=== PATIENT | female | born 1955 | race Caucasian/White ===

== ENCOUNTER 2023-03-27 13:50 | Outpatient (AMB) | payer OTHER, SELFPAY ==
--- NOTE | 2023-03-27 14:09 | MHC.OFFVIS ---
Intake Vital Signs 03/27/23 14:10 Height 5 ft 2.5 in Weight 185 lb BMI 33.3 BP 126/68 Blood Pressure Location Rt brachial Position Sitting Pulse 69 Pulse Source Pulse Oximeter Pulse Oximetry (%) 97 Oxygen Delivery Method Room Air Intake Visit Reasons: Dyspnea Pressroom Foreman Required: No Daycare Worker: Daycare Worker offered & declined Accompanied by: Self / Same As Patient Allergies Sulfa (Sulfonamide Antibiotics) Allergy (Verified 03/27/23 14:21) unknown codeine Adverse Reaction (Verified 03/27/23 14:21) vomiting bactrim Allergy (Mild, Uncoded 03/27/23 14:21) Rash Medication List - Last Reconciled 03/27/23 by Orin Francisco LPN adalimumab (Humira(CF)) 40 mg subcut Q2W alendronate 70 mg PO QWEEK calcipotriene-betamethasone 0.005-0.064 % (Enstilar) 1 appl topical DAILY cetirizine (Zyrtec) 10 mg PO DAILY PRN cholecalciferol (vitamin D3) 50 mcg PO DAILY clopidogrel 75 mg PO DAILY fluticasone propionate 50 mcg/actuation (Flonase Allergy Relief) 1 spray intranasal DAILY gabapentin 600 mg PO BID losartan 25 mg PO DAILY multivitamin 1 tab PO DAILY pravastatin 40 mg PO DAILY HPI Dyspnea HPI Details Danielle is a pleasant 67 year old female, former smoker with approximately 30 pack year history, quit 18 years ago with underlying psoriatic arthritis on Humira and followed by rheumatology. In the past she has been trialed on methotrexate, exbrel, otezla then plaquenil. She was referred for pulmonary evaluation for worsening dyspnea with exertion over the last few years. She denies cough, wheezing or chest tightness. She denies any history of respiratory conditions. She reports sister, smoker with lung cancer, otherwise no pertinent family history. She was previously apart of a lung cancer screening program but has not had a chest CT in years since she quit smoking 18 years ago. She denies any occupational exposures. [facility] [place] Social History (Updated 03/27/23 @ 14:27 by Orin Francisco LPN) Patient Tobacco Use Status: Former Tobacco user Cigarette Packs Per Day: 1 Years Smoked: 30 Review of Systems Const Denies chills, Denies excessive sweating, Denies fever(s), Denies headache(s) and Denies night sweats Eyes Denies dry eyes, Denies irritation and Denies itchy eyes ENT Reports Normal hearing present, Denies headache(s), Denies nasal congestion, Denies nasal discharge, Denies post nasal drip and Denies sore throat Card Denies chest pain, Denies chest pain at rest, Denies chest pain with activity, Denies claudication, Denies leg edema, Denies orthopnea and Denies paroxysmal nocturnal dyspnea Resp Denies chest congestion, Denies cough, Denies excessive phlegm production, Denies pain on inspiration, Denies pain with cough, Denies stridor and Denies wheezing Musc Denies myalgias Neuro Reports Normal hearing present and Denies headache(s) Endo Denies excessive sweating Ricardo/Lymph Denies lymphadenopathy Aller/Immun Denies itchy eyes, Denies seasonal rhinorrhea and Denies wheezing Physical Exam Vital Signs: Last Vital Signs Pulse 69 03/27/23 14:10 BP 126/68 03/27/23 14:10 Pulse Ox 97 03/27/23 14:10 Oxygen Delivery Method Room Air 03/27/23 14:10 BMI result Body Mass Index 33.3 Const General: cooperative, healthy appearing, comfortable, no acute distress, well developed and alert Nutritional Appearance: obese Orientation/consciousness: patient oriented x3 Limitations: no limitations HEENT Head: Yes normal to inspection, Yes normocephalic and Yes atraumatic Ears: hearing grossly normal bilaterally and external ears normal Eyes General: appearance normal, both eyes and all related structures Eyelids: Yes eyelids normal Sclerae: sclerae normal EOM: EOMs intact bilaterally Neck Neck: Yes normal visual inspection and Yes no lymphadenopathy Lymphatic: no lymphadenopathy noted Chest Chest palpation & inspection: normal inspection of the chest Resp Effort & Inspection: normal respiratory effort, able to speak in complete sentences, no audible wheezes, no cough, no stridor, not tachypneic, no tripod positioning and no use of accessory muscles Auscultation: diminished lung sounds Cardio Jugular venous distension: no JVD Rate: regular rate Rhythm: regular rhythm Skin Other: warm, dry General skin exam: no rashes or lesions noted Neuro General: patient oriented x3 Cranial nerves: Yes Normal hearing present Cognition (Neuro): normal cognition Gait exam (Neuro): Normal gait present Extrem General: Yes normal to inspection, Yes capillary refill normal, Yes no clubbing, cyanosis or edema and Yes no pedal edema Psych Appearance: grossly normal and well kempt Speech and movement: Normal speech and movement present and Clear speech present Affect: normal affect Attitude: cooperative Thought process: Normal thought process present Thought content: Normal thought content present Insight: Good insight present (Psych) Judgement: Good judgement present (Psych) Office Procedures 6 Minute Walk Time:: 14:55 SPO2 % at rest: 97 Pulse at rest: 73 SPO2 % during excercise: 93 Pulse during excercise: 98 SPO2 % after excercise: 97 Pulse after excercise: 82 Distance in yards walked: 1,500 Shameka Score: 5 Performance Observations:: Patient walked unassisted on level ground. Maintained O2 saturation of 93% or greater with pulse rate in the 90's for the entire 6 minutes. Patient reports no problem with breathing on level ground inside. No supplemental O2 was required. [address] - 6 Minute Walk Assessment & Plan Assessment & Plan (1) Dyspnea on exertion: Code(s): R06.09 - Other forms of dyspnea (2) Psoriatic arthritis: Code(s): L40.50 - Arthropathic psoriasis, unspecified (3) Multiple pulmonary nodules: Code(s): R91.8 - Other nonspecific abnormal finding of lung field Plan Danielle's symptoms are likely multifactorial with contribution from pulmonary, and deconditioning/obesity etiologies. Will send for PFT to thoroughly evaluate. Patient with significant smoking history, reported prior pulmonary nodules as well as medications that have potential for drug induced interstitial disease, will send for chest CT. 6MWT was performed and patient does not qualify for oxygen at this time. Will follow up in 6 weeks to review results or sooner if needed. All questions were answered and patient is in agreement of plan. Orders: Orders PFT pulmonary function test Today R06.09 - Other forms of dyspnea AMB 6 minute walk 03/27/23 R06.09 - Other forms of dyspnea CT chest wo IV con Today R91.8 - Other nonspecific abnormal finding of lung field Coding Level of Care Code New Pt Level 4 (23156) Diagnoses Dyspnea on exertion R06.09 Psoriatic arthritis L40.50 Multiple pulmonary nodules R91.8 CPT Codes Coding ([id number])
[2023-03-27 14:10] VITALS: BP 126/68; PULSE 69; O2SAT 97; BMI 33.3
[2023-03-27 15:16] VITALS: PULSE 73; O2SAT 97
== END 2023-03-27 15:10 | disposition home or self-care (01) ==
LOC: HO.HPSW 13:50
PROVIDERS: PCP Internal Medicine; Referring Provider Internal Medicine; Visit Provider Nurse Practitioner Family
DX: R06.09 Other forms of dyspnea (principal); L40.50 Arthropathic psoriasis, unspecified; R91.8 Other nonspecific abnormal finding of lung field
CPT/HCPCS: 94618; 99204

== ENCOUNTER 2023-04-09 07:45 | Outpatient (REF) | payer OTHER, SELFPAY | END 2023-04-09 07:46 | disposition home or self-care (01) | LOC: HO.RESP 07:45 | PROVIDERS: PCP Internal Medicine; Visit Provider Nurse Practitioner Family | DX: R06.09 Other forms of dyspnea (principal) | CPT/HCPCS: 94010; 94727; 94729 ==

== ENCOUNTER → 2023-04-09 08:34 | Outpatient (BNV) | payer OTHER, SELFPAY | PROVIDERS: PCP Internal Medicine; Visit Provider Hospitalist | DX: R06.09 Other forms of dyspnea (principal) | CPT/HCPCS: 94060; 94727; 94729 ==

== ENCOUNTER 2023-04-24 13:52 | Outpatient (REF) | payer OTHER, SELFPAY ==
--- NOTE | ~2023-04-24 | CT_ITS ---
EXAMINATION: CT CHEST WITHOUT CONTRAST CLINICAL INFORMATION: Pulmonary nodule COMPARISON: None available. TECHNIQUE: Multidetector volumetric CT imaging of the chest was done. Axial MIP volume rendering provided. Sagittal and coronal reformatted images were obtained. This CT examination was performed using dose optimization techniques as appropriate, variously including the following: *Automated exposure control *Adjustment of mA and/or kV according to patient size (this includes techniques or standardized protocols for targeted exams where dose is matched to indication/reason for exam; i.e. extremities or head) *Use of iterative reconstruction technique DLP: 179 mGy-cm FINDINGS: SHOP AND ALTERATION TAILOR: Unremarkable LUNGS: There is 0.3 cm nodule in the right upper lobe, seen on image 178 series 6. There is calcified 0.2 cm granuloma in the right lower lobe subpleural seen on image 252, another calcified granuloma in the right lower lobe seen on image 269, measured 0.2 cm. On the left there is calcified 0.3 cm granuloma in the left lower lobe image 342 There are mild changes of centrilobular emphysema. Linear atelectasis seen in the right lung base. Central airways are patent. MEDIASTINUM: There is mild medi lymphadenopathy with pretracheal lymph node measured 0.9 cm. There is no hilar lymphadenopathy or pericardial effusion. CORONARY ARTERY CALCIFICATION: There are mild coronary artery calcifications seen. PLEURA: There is no pleural effusion. No pleural mass or thickening. Pleural-based calcifications present most likely due to asbestos exposure. AXILLA: No lymphadenopathy. UPPER ABDOMEN: There is right adrenal gland low-attenuation nodule measured 1.3 cm there is cholelithiasis and a partially visualized gallbladder. There is small hiatal hernia OSSEOUS STRUCTURES: Unremarkable. CT/CT chest wo IV con IMPRESSION: 1. Mild changes of centrilobular emphysema and multiple calcified granulomas. 0.3 cm nodule in the right upper lobe. 2. Cholelithiasis. 3. Right adrenal gland nodule. 4. Small hiatal hernia. 5. Pleural-based calcifications most likely due to asbestos exposure. Fleischner guidelines were followed.
== END 2023-04-24 13:53 | disposition home or self-care (01) ==
LOC: HO.CT 13:52
PROVIDERS: PCP Internal Medicine; Visit Provider Nurse Practitioner Family
DX: R91.8 Other nonspecific abnormal finding of lung field (principal)
CPT/HCPCS: 71250

== ENCOUNTER 2023-05-13 13:43 | Outpatient (AMB) | payer OTHER, SELFPAY ==
[2023-05-13 13:50] VITALS: BP 130/74; PULSE 73; O2SAT 98; BMI 32.8
--- NOTE | 2023-05-13 13:50 | A.OFFVIS_ITS ---
Intake Vital Signs 3 05/13/23 13:50 Height 5 ft 2.5 in Weight 182 lb BMI 32.8 BP 130/74 Blood Pressure Location Rt brachial Position Sitting Pulse 73 Pulse Source Pulse Oximeter Pulse Oximetry (%) 98 Oxygen Delivery Method Room Air Intake Visit Reasons: 6 week follow up/ dysnea Marketing Technologist Required: No Deposition Operator: Deposition Operator offered & declined Accompanied by: Self / Same As Patient Allergies Sulfa (Sulfonamide Antibiotics) Allergy (Verified 05/13/23 13:54) unknown codeine Adverse Reaction (Verified 05/13/23 13:54) vomiting bactrim Allergy (Mild, Uncoded 05/13/23 13:54) Rash Medication List - Last Reconciled 05/13/23 by Orin Francisco LPN adalimumab (Humira(CF)) 40 mg subcut Q2W alendronate 70 mg PO QWEEK calcipotriene-betamethasone 0.005-0.064 % (Enstilar) 1 appl topical DAILY cetirizine (Zyrtec) 10 mg PO DAILY PRN cholecalciferol (vitamin D3) 50 mcg PO DAILY clopidogrel 75 mg PO DAILY fluticasone propionate 50 mcg/actuation (Flonase Allergy Relief) 1 spray intranasal DAILY gabapentin 600 mg PO BID losartan 25 mg PO DAILY multivitamin 1 tab PO DAILY pravastatin 40 mg PO DAILY HPI 6 week follow up/ dysnea 2 HPI0 Details Danielle is a pleasant 68 year old female, former smoker with approximately 30 pack year history, quit 18 years ago with underlying h/o of squamous cell carcinoma s/p right middle lobe wedge resection, cervical cancer in her 20s s/p partial hysterectomy, psoriatic arthritis on Humira and followed by rheumatology. In the past she has been trialed on methotrexate, exbrel, otezla then plaquenil. She was referred for pulmonary evaluation for worsening dyspnea with exertion over the last few years. She denies cough, wheezing or chest tightness. Today she presents to review results of PFT and chest CT. [facility] Medical History (Updated 05/14/23 @ 10:27 by Lynne Tian PA-C) History of lung cancer Multiple pulmonary nodules PVD (peripheral vascular disease) Psoriatic arthritis Hypertension Hyperlipidemia Hypothyroidism History of cervical cancer Surgical History (Updated 05/14/23 @ 10:27 by Lynne Tian PA-C) History of lung surgery History of cardiac cath History of angioplasty History of hysterectomy History of hernia repair History of tonsillectomy History of appendectomy Social History (Updated 05/13/23 @ 13:56 by Orin Francisco LPN) Patient Tobacco Use Status: Former Tobacco user Cigarette Packs Per Day: 1 Years Smoked: 30 Review of Systems Const Denies chills, Denies excessive sweating, Denies fever(s), Denies headache(s) and Denies night sweats Eyes Denies dry eyes, Denies irritation and Denies itchy eyes ENT Reports Normal hearing present, Denies headache(s), Denies nasal congestion, Denies nasal discharge, Denies post nasal drip and Denies sore throat Card Denies chest pain, Denies chest pain at rest, Denies chest pain with activity, Denies claudication, Denies leg edema, Denies orthopnea and Denies paroxysmal nocturnal dyspnea Resp Denies chest congestion, Denies cough, Denies excessive phlegm production, Denies pain on inspiration, Denies pain with cough, Denies stridor and Denies wheezing Musc Denies myalgias Neuro Reports Normal hearing present and Denies headache(s) Endo Denies excessive sweating Ricardo/Lymph Denies lymphadenopathy Aller/Immun Denies itchy eyes, Denies seasonal rhinorrhea and Denies wheezing Physical Exam Vital Signs: Last Vital Signs Pulse 73 05/13/23 13:50 BP 130/74 05/13/23 13:50 Pulse Ox 98 05/13/23 13:50 Oxygen Delivery Method Room Air 05/13/23 13:50 BMI result Body Mass Index 32.8 Const General: cooperative, healthy appearing, comfortable, no acute distress, well developed and alert Nutritional Appearance: obese Orientation/consciousness: patient oriented x3 Limitations: no limitations HEENT Head: Yes normal to inspection, Yes normocephalic and Yes atraumatic Ears: hearing grossly normal bilaterally and external ears normal Eyes General: appearance normal, both eyes and all related structures Eyelids: Yes eyelids normal Sclerae: sclerae normal EOM: EOMs intact bilaterally Neck Neck: Yes normal visual inspection and Yes no lymphadenopathy Lymphatic: no lymphadenopathy noted Chest Chest palpation & inspection: normal inspection of the chest Resp Effort & Inspection: normal respiratory effort, able to speak in complete sentences, no audible wheezes, no cough, no stridor, not tachypneic, no tripod positioning and no use of accessory muscles Auscultation: diminished lung sounds Cardio Jugular venous distension: no JVD Rate: regular rate Rhythm: regular rhythm Skin Other: warm, dry General skin exam: no rashes or lesions noted Neuro General: patient oriented x3 Cranial nerves: Yes Normal hearing present Cognition (Neuro): normal cognition Gait exam (Neuro): Normal gait present Extrem General: Yes normal to inspection, Yes capillary refill normal, Yes no clubbing, cyanosis or edema and Yes no pedal edema Psych Appearance: grossly normal and well kempt Speech and movement: Normal speech and movement present and Clear speech present Affect: normal affect Attitude: cooperative Thought process: Normal thought process present Thought content: Normal thought content present Insight: Good insight present (Psych) Judgement: Good judgement present (Psych) Results Reviewed Results Reviewed: [address] [address] [address] Scan Report Signed Patient: Danielle Liang MR#: [id number] : 1955 Acct:[id number] Age/Sex: 67 / F ADM Date: 04/24/23 Loc: HO.CT Attending Dr: Rae Adames NP Ordering Physician: Rae Adames NP Date of Service: 04/24/23 Procedure(s): CT chest wo IV con Accession Number(s): [id number] cc: Sigifredo Coley MD; Rae Adames NP~ EXAMINATION: CT CHEST WITHOUT CONTRAST CLINICAL INFORMATION: Pulmonary nodule COMPARISON: None available. TECHNIQUE: Multidetector volumetric CT imaging of the chest was done. Axial MIP volume rendering provided. Sagittal and coronal reformatted images were obtained. This CT examination was performed using dose optimization techniques as appropriate, variously including the following: *Automated exposure control *Adjustment of mA and/or kV according to patient size (this includes techniques or standardized protocols for targeted exams where dose is matched to indication/reason for exam; i.e. extremities or head) *Use of iterative reconstruction technique DLP: 179 mGy-cm FINDINGS: ESCROW MANAGER: Unremarkable LUNGS: There is 0.3 cm nodule in the right upper lobe, seen on image 178 series 6. There is calcified 0.2 cm granuloma in the right lower lobe subpleural seen on image 252, another calcified granuloma in the right lower lobe seen on image 269, measured 0.2 cm. On the left there is calcified 0.3 cm granuloma in the left lower lobe image 342 There are mild changes of centrilobular emphysema. Linear atelectasis seen in the right lung base. Central airways are patent. MEDIASTINUM: There is mild medi lymphadenopathy with pretracheal lymph node measured 0.9 cm. There is no hilar lymphadenopathy or pericardial effusion. CORONARY ARTERY CALCIFICATION: There are mild coronary artery calcifications seen. PLEURA: There is no pleural effusion. No pleural mass or thickening. Pleural-based calcifications present most likely due to asbestos exposure. AXILLA: No lymphadenopathy. UPPER ABDOMEN: There is right adrenal gland low-attenuation nodule measured 1.3 cm there is cholelithiasis and a partially visualized gallbladder. There is small hiatal hernia OSSEOUS STRUCTURES: Unremarkable. CT/CT chest wo IV con IMPRESSION: 1. Mild changes of centrilobular emphysema and multiple calcified granulomas. 0.3 cm nodule in the right upper lobe. 2. Cholelithiasis. 3. Right adrenal gland nodule. 4. Small hiatal hernia. 5. Pleural-based calcifications most likely due to asbestos exposure. Fleischner guidelines were followed. Assessment & Plan Assessment & Plan (1) Dyspnea on exertion: Code(s): R06.09 - Other forms of dyspnea (2) Psoriatic arthritis: Code(s): L40.50 - Arthropathic psoriasis, unspecified (3) Multiple pulmonary nodules: Code(s): R91.8 - Other nonspecific abnormal finding of lung field Plan Reviewed PFT which did not reveal an obstructive ventilatory defect and there was no significant response to bronchodilators.There is a mild decrease in maximum voluntary ventilation likely secondary to deconditioning. The patient also has a restrictive ventilatory defect consistent with moderate restrictive lung disease as well as a moderately decreased DLCO of 48%. We discussed importance of weight loss. Reviewed chest CT which revealed a 0.3 cm nodule in the right upper lobe, calcified granulomas bilaterally <0.3 cm. Mild emphysematous changes and linear atelectasis of right lung base as well as pleural-based calcifications most likely due to asbestos exposure. Will repeat chest CT in one year. Will trial Breo. Reviewed importance of oral hygiene and inhaler technique. Will follow up in 6 weeks to review response to inhaler or sooner if needed. All questions were answered and patient is in agreement of plan. Orders: Orders 2 CT chest wo IV con 04/25/24 R91.8 - Other nonspecific abnormal finding of lung field Medications: New 2 fluticasone furoate-vilanterol 200-25 mcg/dose (Breo Ellipta) 1 inh inhalation DAILY 60 ea 3RF Coding Level of Care Code Est Pt Level 4 (68170) Diagnoses Dyspnea on exertion R06.09 Psoriatic arthritis L40.50 Multiple pulmonary nodules R91.8
== END 2023-05-13 14:41 | disposition home or self-care (01) ==
PROVIDERS: PCP Internal Medicine; Visit Provider Nurse Practitioner Family
DX: R06.09 Other forms of dyspnea (principal); L40.50 Arthropathic psoriasis, unspecified; R91.8 Other nonspecific abnormal finding of lung field
CPT/HCPCS: 99214

== ENCOUNTER → 2023-05-13 13:43 | Outpatient (BNVA) | payer OTHER, SELFPAY | PROVIDERS: PCP Internal Medicine; Visit Provider Nurse Practitioner Family ==

== ENCOUNTER 2023-08-12 13:27 | Outpatient (AMB) | payer OTHER, SELFPAY ==
--- NOTE | 2023-08-12 13:38 | MHC.OFFVIS ---
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 Intern offered & declined Accompanied by: Self / Same As Patient Allergies Sulfa (Sulfonamide Antibiotics) Allergy (Verified 08/12/23 13:41) unknown codeine Adverse Reaction (Verified 08/12/23 13:41) vomiting bactrim Allergy (Mild, Uncoded 08/12/23 13:41) Rash Medication List - Last Reconciled 08/12/23 by Orin Francisco LPN adalimumab (Humira(CF)) 40 mg subcut Q2W alendronate 70 mg PO QWEEK calcipotriene-betamethasone 0.005-0.064 % (Enstilar) 1 appl topical DAILY cetirizine (Zyrtec) 10 mg PO DAILY PRN cholecalciferol (vitamin D3) 50 mcg PO DAILY clopidogrel 75 mg PO DAILY fluticasone furoate-vilanterol 200-25 mcg/dose (Breo Ellipta) 1 inh inhalation DAILY 90 days fluticasone propionate 50 mcg/actuation (Flonase Allergy Relief) 1 spray intranasal DAILY gabapentin 600 mg PO BID losartan 25 mg PO DAILY multivitamin 1 tab PO DAILY pravastatin 40 mg PO DAILY HPI dyspnea : 3 month f/u HPI Details Danielle is a pleasant 68 year old female, former smoker with approximately 30 pack year history, quit 18 years ago with emphysema and underlying h/o of squamous cell carcinoma s/p right middle lobe wedge resection, cervical cancer in her 20s s/p partial hysterectomy, psoriatic arthritis on Humira and followed by rheumatology. She was initially referred for worsening dyspnea with exertion over the last few years and at the last visit was started on Breo. She reports improvements in dyspnea and denies cough, wheezing or chest tightness. [facility] Medical History (Updated 08/12/23 @ 13:57 by Rae Adames NP) History of lung cancer Multiple pulmonary nodules PVD (peripheral vascular disease) Psoriatic arthritis Hypertension Hyperlipidemia Hypothyroidism History of cervical cancer Surgical History (Updated 05/14/23 @ 10:27 by Lynne Tian PA-C) History of lung surgery History of cardiac cath History of angioplasty History of hysterectomy History of hernia repair History of tonsillectomy History of appendectomy Social History (Updated 08/12/23 @ 13:42 by Orin Francisco LPN) Patient Tobacco Use Status: Former Tobacco user Cigarette Packs Per Day: 1 Years Smoked: 30 Review of Systems Const Denies chills, Denies excessive sweating, Denies fever(s), Denies headache(s) and Denies night sweats Eyes Denies dry eyes, Denies irritation and Denies itchy eyes ENT Reports Normal hearing present, Denies headache(s), Denies nasal congestion, Denies nasal discharge, Denies post nasal drip and Denies sore throat Card Denies chest pain, Denies chest pain at rest, Denies chest pain with activity, Denies claudication, Denies leg edema, Denies orthopnea and Denies paroxysmal nocturnal dyspnea Resp Denies chest congestion, Denies cough, Denies excessive phlegm production, Denies pain on inspiration, Denies pain with cough, Denies stridor and Denies wheezing Musc Denies myalgias Neuro Reports Normal hearing present and Denies headache(s) Endo Denies excessive sweating Ricardo/Lymph Denies lymphadenopathy Aller/Immun Denies itchy eyes, Denies seasonal rhinorrhea and Denies wheezing Physical Exam Vital Signs: Last Vital Signs Pulse 77 08/12/23 13:39 BP 116/64 08/12/23 13:39 Pulse Ox 98 08/12/23 13:39 Oxygen Delivery Method Room Air 08/12/23 13:39 BMI result Body Mass Index 33.5 Const General: cooperative, healthy appearing, comfortable, no acute distress, well developed and alert Nutritional Appearance: obese Orientation/consciousness: patient oriented x3 Limitations: no limitations HEENT Head: Yes normal to inspection, Yes normocephalic and Yes atraumatic Ears: hearing grossly normal bilaterally and external ears normal Eyes General: appearance normal, both eyes and all related structures Eyelids: Yes eyelids normal Sclerae: sclerae normal EOM: EOMs intact bilaterally Neck Neck: Yes normal visual inspection and Yes no lymphadenopathy Lymphatic: no lymphadenopathy noted Chest Chest palpation & inspection: normal inspection of the chest Resp Effort & Inspection: normal respiratory effort, able to speak in complete sentences, no audible wheezes, no cough, no stridor, not tachypneic, no tripod positioning and no use of accessory muscles Auscultation: clear to auscultation bilaterally Cardio Jugular venous distension: no JVD Rate: regular rate Rhythm: regular rhythm Skin Other: warm, dry General skin exam: no rashes or lesions noted Neuro General: patient oriented x3 Cranial nerves: Yes Normal hearing present Cognition (Neuro): normal cognition Gait exam (Neuro): Normal gait present Extrem General: Yes normal to inspection, Yes capillary refill normal, Yes no clubbing, cyanosis or edema and Yes no pedal edema Psych Appearance: grossly normal and well kempt Speech and movement: Normal speech and movement present and Clear speech present Affect: normal affect Attitude: cooperative Thought process: Normal thought process present Thought content: Normal thought content present Insight: Good insight present (Psych) Judgement: Good judgement present (Psych) Assessment & Plan Assessment & Plan (1) Dyspnea on exertion: Code(s): R06.09 - Other forms of dyspnea (2) Multiple pulmonary nodules: Code(s): R91.8 - Other nonspecific abnormal finding of lung field (3) Emphysema of lung: Code(s): J43.9 - Emphysema, unspecified (4) History of lung cancer: Comment: (Hx SCC s/p RML wedge resection in 2013) Code(s): Z85.118 - Personal history of other malignant neoplasm of bronchus and lung Plan Advised patient to continue current regimen of Breo and will add albuterol PRN. Discussed when to use. She is being followed for pulmonary nodules 3 mm nodule in the right upper lobe, repeat chest CT for April already entered. All questions were answered and patient is in agreement of plan. Will follow up in 4 months or sooner if needed. Medications: New albuterol sulfate 90 mcg/actuation 2 puffs inhalation Q4-6H PRN 1 ea 0RF shortness of breath or wheezing Coding Level of Care Code Est Pt Level 3 (08415) Diagnoses Dyspnea on exertion R06.09 Multiple pulmonary nodules R91.8 Emphysema of lung J43.9 History of lung cancer Z85.118
[2023-08-12 13:39] VITALS: BP 116/64; PULSE 77; O2SAT 98; BMI 33.5
== END 2023-08-12 14:24 | disposition home or self-care (01) ==
PROVIDERS: PCP Internal Medicine; Visit Provider Nurse Practitioner Family
DX: R06.09 Other forms of dyspnea (principal); R91.8 Other nonspecific abnormal finding of lung field; J43.9 Emphysema, unspecified; Z85.118 Personal history of other malignant neoplasm of bronchus and lung
CPT/HCPCS: 99213

== ENCOUNTER → 2023-08-12 13:27 | Outpatient (BNVA) | payer OTHER, SELFPAY | PROVIDERS: PCP Internal Medicine; Visit Provider Nurse Practitioner Family ==

== ENCOUNTER 2023-12-16 13:56 | Outpatient (AMB) | payer OTHER, SELFPAY ==
--- NOTE | 2023-12-16 14:19 | MHC.OFFVIS ---
Vital Signs 12/16/23 14:22 Height 5 ft 2.5 in Weight 186 lb BMI 33.5 BP 142/68 H Blood Pressure Location Rt brachial Position Sitting Pulse 66 Pulse Source Pulse Oximeter Pulse Oximetry (%) 97 Oxygen Delivery Method Room Air Intake Visit Reasons: dyspnea: 4 month f/u Allergies Sulfa (Sulfonamide Antibiotics) Allergy (Verified 12/16/23 14:24) unknown codeine Adverse Reaction (Verified 12/16/23 14:24) vomiting bactrim Allergy (Mild, Uncoded 12/16/23 14:24) Rash HPI HPI dyspnea: 4 month f/u: Details: Danielle is a pleasant 68 year old female, former smoker with approximately 30 pack year history, quit 18 years ago with emphysema and underlying h/o of squamous cell carcinoma s/p right middle lobe wedge resection, cervical cancer in her 20s s/p partial hysterectomy, psoriatic arthritis on Humira and followed by rheumatology. Today she presents for routine follow up. She reports good symptomatic control with Breo. Denies any wheezing, chest tightness, or cough. She reports dyspnea occurs with moderate exertion otherwise denies. She denies any visits to urgent care or hospitalizations since the last visit. [facility] Medical History (Updated 12/16/23 @ 20:32 by Rae Adames NP) History of lung cancer Multiple pulmonary nodules PVD (peripheral vascular disease) Psoriatic arthritis Hypertension Hyperlipidemia Hypothyroidism History of cervical cancer Surgical History (Updated 05/14/23 @ 10:27 by Lynne Tian PA-C) History of lung surgery History of cardiac cath History of angioplasty History of hysterectomy History of hernia repair History of tonsillectomy History of appendectomy Social History Patient Tobacco Use Status: Former Tobacco user Cigarette Packs Per Day: 1 Years Smoked: 30 Review of Systems Const Denies chills, Denies excessive sweating, Denies fever(s), Denies headache(s) and Denies night sweats Eyes Denies dry eyes, Denies irritation and Denies itchy eyes ENT Reports Normal hearing present, Denies headache(s), Denies nasal congestion, Denies nasal discharge, Denies post nasal drip and Denies sore throat Card Denies chest pain, Denies chest pain at rest, Denies chest pain with activity, Denies claudication, Denies leg edema, Denies dyspnea, Denies orthopnea and Denies paroxysmal nocturnal dyspnea Resp Denies chest congestion, Denies cough, Denies excessive phlegm production, Denies pain on inspiration, Denies pain with cough, Denies dyspnea, Denies stridor and Denies wheezing Musc Denies myalgias Neuro Reports Normal hearing present and Denies headache(s) Endo Denies excessive sweating Ricardo/Lymph Denies lymphadenopathy Aller/Immun Denies itchy eyes, Denies seasonal rhinorrhea and Denies wheezing Physical Exam Vital Signs: Last Vital Signs Pulse 66 12/16/23 14:22 BP 142/68 H 12/16/23 14:22 Pulse Ox 97 12/16/23 14:22 Oxygen Delivery Method Room Air 12/16/23 14:22 BMI result Body Mass Index 33.5 Const General: cooperative, healthy appearing, comfortable, no acute distress, well developed and alert Nutritional Appearance: obese Orientation/consciousness: patient oriented x3 Limitations: no limitations HEENT Head: Yes normal to inspection, Yes normocephalic and Yes atraumatic Ears: hearing grossly normal bilaterally and external ears normal Eyes General: appearance normal, both eyes and all related structures Eyelids: Yes eyelids normal Sclerae: sclerae normal EOM: EOMs intact bilaterally Neck Neck: Yes normal visual inspection and Yes no lymphadenopathy Lymphatic: no lymphadenopathy noted Chest Chest palpation & inspection: normal inspection of the chest Resp Effort & Inspection: normal respiratory effort, able to speak in complete sentences, no audible wheezes, no cough, no stridor, not tachypneic, no tripod positioning and no use of accessory muscles Auscultation: clear to auscultation bilaterally Cardio Jugular venous distension: no JVD Rate: regular rate Rhythm: regular rhythm Skin Other: warm, dry General skin exam: no rashes or lesions noted Neuro General: patient oriented x3 Cranial nerves: Yes Normal hearing present Cognition (Neuro): normal cognition Gait exam (Neuro): Normal gait present Extrem General: Yes normal to inspection, Yes capillary refill normal, Yes no clubbing, cyanosis or edema and Yes no pedal edema Psych Appearance: grossly normal and well kempt Speech and movement: Normal speech and movement present and Clear speech present Affect: normal affect Attitude: cooperative Thought process: Normal thought process present Thought content: Normal thought content present Insight: Good insight present (Psych) Judgement: Good judgement present (Psych) Assessment & Plan Assessment & Plan (1) Dyspnea on exertion: Code(s): R06.09 - Other forms of dyspnea Category: Medical (2) Multiple pulmonary nodules: Code(s): R91.8 - Other nonspecific abnormal finding of lung field Category: Medical (3) Emphysema of lung: Code(s): J43.9 - Emphysema, unspecified Category: Medical (4) History of lung cancer: Comment: (Hx SCC s/p RML wedge resection in 2013) Code(s): Z85.118 - Personal history of other malignant neoplasm of bronchus and lung Category: Medical (5) Pleural plaque: Code(s): J92.9 - Pleural plaque without asbestos Category: Medical Plan Advised patient to continue current regimen of Breo and albuterol PRN. Will send refills. She is being followed for pulmonary nodules 3 mm nodule in the right upper lobe, repeat chest CT for April, order previously entered. All questions were answered and patient is in agreement of plan. Will follow up to review CT results or sooner if needed. Medications: Refilled albuterol sulfate 90 mcg/actuation 2 puffs inhalation Q4-6H PRN 1 ea 0RF shortness of breath or wheezing fluticasone furoate-vilanterol 200-25 mcg/dose (Breo Ellipta) 1 inh inhalation DAILY 90 days 60 ea 3RF J43.9 - Emphysema, unspecified Coding Level of Care Code Est Pt Level 4 (58612) Diagnoses Dyspnea on exertion R06.09 Multiple pulmonary nodules R91.8 Emphysema of lung J43.9 History of lung cancer Z85.118 Pleural plaque J92.9
[2023-12-16 14:22] VITALS: BP 142/68; PULSE 66; O2SAT 97; BMI 33.5
== END 2023-12-16 14:50 | disposition home or self-care (01) ==
PROVIDERS: PCP Internal Medicine; Visit Provider Nurse Practitioner Family
DX: R06.09 Other forms of dyspnea (principal); R91.8 Other nonspecific abnormal finding of lung field; J43.9 Emphysema, unspecified; Z85.118 Personal history of other malignant neoplasm of bronchus and lung; J92.9 Pleural plaque without asbestos
CPT/HCPCS: 99214

== ENCOUNTER → 2023-12-16 13:56 | Outpatient (BNVA) | payer OTHER, SELFPAY | PROVIDERS: PCP Internal Medicine; Visit Provider Nurse Practitioner Family ==

== ENCOUNTER 2024-04-25 09:46 | Outpatient (REF) | payer OTHER, SELFPAY ==
--- NOTE | ~2024-04-25 | CT_ITS ---
EXAMINATION: CT CHEST WITHOUT CONTRAST CLINICAL INFORMATION: Pulmonary nodules. COMPARISON: CT chest dated April 24, 2023. TECHNIQUE: Multidetector volumetric CT imaging of the chest was done. Axial MIP volume rendering provided. Sagittal and coronal reformatted images were obtained. This CT examination was performed using dose optimization techniques as appropriate, variously including the following: *Automated exposure control *Adjustment of mA and/or kV according to patient size (this includes techniques or standardized protocols for targeted exams where dose is matched to indication/reason for exam; i.e. extremities or head) *Use of iterative reconstruction technique DLP: 149 mGy-cm FINDINGS: Submitted for interpretation on June 17, 2024. Sutures, volume loss, linear attenuation in retraction involving the anterior right lower hemithorax, probably the middle lobe. There are 2 mm noncalcified pulmonary nodules in the peripheral right upper lobe, probably anterior segment. There are 2 mm noncalcified pulmonary nodules in the periphery of the left upper lobe. There is a 2 mm noncalcified pulmonary nodule in the left lower lung lobe. There are multiple, scattered less than 2 mm calcified pulmonary nodules both lungs. There is a subtle pulmonary mosaic pattern. Mild centrilobular and paraseptal emphysematous changes involving mostly the upper lobes. Linear attenuation abnormalities in the lung bases more conspicuous in the right lung. Volume loss right lung with the elevated right hemidiaphragm. No bronchiectasis. No honeycombing. No consolidation. No pleural effusion. Calcified pleural plaques, right lower hemithorax. No pneumothorax. Respiratory airways patent. Vascular clips in the jared. No gross lymphadenopathy, mediastinum or axillary. Calcified plaques in the thoracic aorta wall its main branches and the coronary arteries. No aneurysm, thoracic aorta. No pericardial effusion. There is a 1 cm low density nodule measuring 12 Hounsfield units in the right adrenal gland. Punctate calcification in the upper pole left kidney. No hydronephrosis in either kidney. Renal cortical thinning, bilaterally. Focal hypodensity in the upper pole left kidney. Multilevel spondylosis without acute fracture or listhesis. No lytic or blastic lesions. Calcified plaques abdominal aorta wall and splenic artery. CT/CT chest wo IV con IMPRESSION: New, 2 mm noncalcified pulmonary nodules in both upper lobes and left lower lung lobe. Posttreatment changes, right middle lobe/right lower lung lobe and calcified pleura plaque. 1 cm nodule, right adrenal gland. Perhaps a lipid poor adenoma Coronary artery disease and atherosclerosis disease. Probable nonobstructing nephrolithiasis, left kidney.. Fleischner guidelines were followed. Electronically signed by: Gilberto Baugh MD 06/17/2024 08:11 AM NICHO FITCH
== END 2024-04-25 09:47 | disposition home or self-care (01) ==
LOC: HO.CT 09:46
PROVIDERS: PCP Internal Medicine; Visit Provider Nurse Practitioner Family
DX: R91.8 Other nonspecific abnormal finding of lung field (principal)
CPT/HCPCS: 71250

== ENCOUNTER → 2024-04-25 09:48 | Outpatient (BNV) | payer OTHER, SELFPAY | PROVIDERS: PCP Internal Medicine; Visit Provider Radiology Diagnostic Radiology | DX: R91.8 Other nonspecific abnormal finding of lung field (principal) | CPT/HCPCS: 71250 ==

== ENCOUNTER 2024-05-18 09:58 | Outpatient (AMB) | payer OTHER, SELFPAY ==
--- NOTE | 2024-05-18 10:08 | A.OFFVIS_ITS ---
Vital Signs 05/18/24 10:09 Height 5 ft 2.5 in Weight 183 lb 8 oz BMI 33.0 BP 120/62 Blood Pressure Location Lt brachial Position Sitting Pulse 71 Pulse Source Pulse Oximeter Pulse Oximetry (%) 94 Oxygen Delivery Method Room Air Intake Visit Reasons: dyspnea: 4 month f/u Allergies Sulfa (Sulfonamide Antibiotics) Allergy (Verified 05/18/24 10:11) unknown codeine Adverse Reaction (Verified 05/18/24 10:11) vomiting bactrim Allergy (Mild, Uncoded 05/18/24 10:11) Rash HPI HPI dyspnea: 4 month f/u: Details: Danielle is a pleasant 69 year old female, former smoker with approximately 30 pack year history, quit 18 years ago with emphysema and underlying h/o of squamous cell carcinoma s/p right middle lobe wedge resection, cervical cancer in her 20s s/p partial hysterectomy, psoriatic arthritis on now on Skyrizi, previously on Humira and followed by rheumatology. She continues to report good control of respiratory symptoms on Breo, using albuterol MDI infrequently. Denies any wheezing, chest tightness, or cough. She reports dyspnea occurs with moderate exertion otherwise denies. She denies any visits to urgent care or hospitalizations since the last visit. She did note having an URI a few weeks ago requiring increased use of albuterol however symptoms resolved without need for antibiotics or prednisone. At the last visit, she was sent for chest CT however not officially read by radiology. [facility] Medical History (Updated 12/16/23 @ 20:32 by Rae Adames NP) History of lung cancer Multiple pulmonary nodules PVD (peripheral vascular disease) Psoriatic arthritis Hypertension Hyperlipidemia Hypothyroidism History of cervical cancer Surgical History (Updated 05/14/23 @ 10:27 by Lynne Tian PA-C) History of lung surgery History of cardiac cath History of angioplasty History of hysterectomy History of hernia repair History of tonsillectomy History of appendectomy Social History Patient Tobacco Use Status: Former Tobacco user Cigarette Packs Per Day: 1 Years Smoked: 30 Review of Systems Const Denies chills, Denies excessive sweating, Denies fever(s), Denies headache(s) and Denies night sweats Eyes Denies dry eyes, Denies irritation and Denies itchy eyes ENT Reports Normal hearing present, Denies headache(s), Denies nasal congestion, Denies nasal discharge, Denies post nasal drip and Denies sore throat Card Denies chest pain, Denies chest pain at rest, Denies chest pain with activity, Denies claudication, Denies leg edema, Denies dyspnea, Denies dyspnea on exertion, Denies orthopnea and Denies paroxysmal nocturnal dyspnea Resp Denies chest congestion, Denies cough, Denies excessive phlegm production, Denies pain on inspiration, Denies pain with cough, Denies dyspnea, Denies dyspnea on exertion, Denies stridor and Denies wheezing Musc Denies myalgias Neuro Reports Normal hearing present and Denies headache(s) Endo Denies excessive sweating Ricardo/Lymph Denies lymphadenopathy Aller/Immun Denies itchy eyes, Denies seasonal rhinorrhea and Denies wheezing Physical Exam Vital Signs: Last Vital Signs Pulse 71 05/18/24 10:09 BP 120/62 05/18/24 10:09 Pulse Ox 94 05/18/24 10:09 Oxygen Delivery Method Room Air 05/18/24 10:09 BMI result Body Mass Index 33.0 Const General: cooperative, healthy appearing, comfortable, no acute distress, well developed and alert Nutritional Appearance: obese Orientation/consciousness: patient oriented x3 Limitations: no limitations HEENT Head: Yes normal to inspection, Yes normocephalic and Yes atraumatic Ears: hearing grossly normal bilaterally and external ears normal Eyes General: appearance normal, both eyes and all related structures Eyelids: Yes eyelids normal Sclerae: sclerae normal EOM: EOMs intact bilaterally Neck Neck: Yes normal visual inspection and Yes no lymphadenopathy Lymphatic: no lymphadenopathy noted Chest Chest palpation & inspection: normal inspection of the chest Resp Effort & Inspection: normal respiratory effort, able to speak in complete sentences, no audible wheezes, no cough, no stridor, not tachypneic, no tripod positioning and no use of accessory muscles Auscultation: clear to auscultation bilaterally Cardio Jugular venous distension: no JVD Rate: regular rate Rhythm: regular rhythm Skin Other: warm, dry General skin exam: no rashes or lesions noted Neuro General: patient oriented x3 Cranial nerves: Yes Normal hearing present Cognition (Neuro): normal cognition Gait exam (Neuro): Normal gait present Extrem General: Yes normal to inspection, Yes capillary refill normal, Yes no clubbing, cyanosis or edema and Yes no pedal edema Psych Appearance: grossly normal and well kempt Speech and movement: Normal speech and movement present and Clear speech present Affect: normal affect Attitude: cooperative Thought process: Normal thought process present Thought content: Normal thought content present Insight: Good insight present (Psych) Judgement: Good judgement present (Psych) Assessment & Plan Assessment & Plan (1) Dyspnea on exertion: Code(s): R06.09 - Other forms of dyspnea Category: Medical (2) Multiple pulmonary nodules: Code(s): R91.8 - Other nonspecific abnormal finding of lung field Category: Medical (3) Emphysema of lung: Code(s): J43.9 - Emphysema, unspecified Category: Medical (4) History of lung cancer: Comment: (Hx SCC s/p RML wedge resection in 2013) Code(s): Z85.118 - Personal history of other malignant neoplasm of bronchus and lung Category: Medical (5) Pleural plaque: Code(s): J92.9 - Pleural plaque without asbestos Category: Medical Plan Advised patient to continue current regimen of Breo and albuterol PRN. Will send refills. She is being followed for pulmonary nodules 3 mm nodule in the right upper lobe, awaiting final result of repeat chest CT performed in April. Will call patient with results. All questions were answered and patient is in agreement of plan. Will follow up in 6 months or sooner if needed. Medications: Refilled albuterol sulfate 90 mcg/actuation 2 puffs inhalation Q4-6H PRN 1 ea 0RF shortness of breath or wheezing fluticasone furoate-vilanterol 200-25 mcg/dose (Breo Ellipta) 1 inh inhalation D AILY 60 ea 3RF 90 days J43.9 - Emphysema, unspecified Coding Level of Care Code Est Pt Level 4 (32109) Diagnoses Dyspnea on exertion R06.09 Multiple pulmonary nodules R91.8 Emphysema of lung J43.9 History of lung cancer Z85.118 Pleural plaque J92.9
[2024-05-18 10:09] VITALS: BP 120/62; PULSE 71; O2SAT 94; BMI 33.0
== END 2024-05-18 10:38 | disposition home or self-care (01) ==
PROVIDERS: PCP Internal Medicine; Visit Provider Nurse Practitioner Family
DX: R06.09 Other forms of dyspnea (principal); R91.8 Other nonspecific abnormal finding of lung field; J43.9 Emphysema, unspecified; Z85.118 Personal history of other malignant neoplasm of bronchus and lung; J92.9 Pleural plaque without asbestos
CPT/HCPCS: 99214

== ENCOUNTER → 2024-05-18 09:58 | Outpatient (BNVA) | payer OTHER, SELFPAY | PROVIDERS: PCP Internal Medicine; Visit Provider Nurse Practitioner Family | DX: J43.9 Emphysema, unspecified (principal) ==

== ENCOUNTER 2024-11-22 08:50 | Outpatient (AMB) | payer OTHER, SELFPAY ==
[2024-11-22 08:57] VITALS: BP 142/64; PULSE 67; O2SAT 97; BMI 33.0
--- NOTE | 2024-11-22 08:57 | A.OFFVIS_ITS ---
Vital Signs 11/22/24 08:57 Height 5 ft 2.5 in Weight 183 lb 4 oz BMI 33.0 BP 142/64 H Blood Pressure Location Rt brachial Position Sitting Pulse 67 Pulse Source Pulse Oximeter Pulse Oximetry (%) 97 Oxygen Delivery Method Room Air Intake Visit Reasons: dyspnea Allergies Sulfa (Sulfonamide Antibiotics) Allergy (Verified 11/22/24 09:01) unknown codeine Adverse Reaction (Verified 11/22/24 09:01) vomiting bactrim Allergy (Mild, Uncoded 11/22/24 09:01) Rash HPI HPI dyspnea: Details: Danielle is a pleasant 69 year old female, former smoker with approximately 30 pack year history, quit 18 years ago with emphysema and underlying h/o of squamous cell carcinoma s/p right middle lobe wedge resection (no chemo/radiation), cervical cancer in her 20s s/p partial hysterectomy, psoriatic arthritis on Skyrizi, previously on Humira and followed by [facility] rheumatology. She continues to report good control of respiratory symptoms on Breo, reporting occasional dyspnea, using albuterol MDI infrequently. Denies any wheezing, chest tightness, or cough. Today she presents for routine visit. [facility] Medical History (Updated 11/22/24 @ 13:34 by Rae Adames NP) History of lung cancer Multiple pulmonary nodules PVD (peripheral vascular disease) Psoriatic arthritis Hypertension Hyperlipidemia Hypothyroidism History of cervical cancer Surgical History (Updated 05/14/23 @ 10:27 by Lynne Tian PA-C) History of lung surgery History of cardiac cath History of angioplasty History of hysterectomy History of hernia repair History of tonsillectomy History of appendectomy Social History Patient Tobacco Use Status: Former Tobacco user Cigarette Packs Per Day: 1 Years Smoked: 30 Review of Systems Const Denies chills, Denies excessive sweating, Denies fever(s), Denies headache(s) and Denies night sweats Eyes Denies dry eyes, Denies irritation and Denies itchy eyes ENT Reports Normal hearing present, Denies headache(s), Denies nasal congestion, Denies nasal discharge, Denies post nasal drip and Denies sore throat Card Denies chest pain, Denies chest pain at rest, Denies chest pain with activity, Denies claudication, Denies leg edema, Denies dyspnea, Denies dyspnea on exertion, Denies orthopnea and Denies paroxysmal nocturnal dyspnea Resp Denies chest congestion, Denies cough, Denies excessive phlegm production, Denies pain on inspiration, Denies pain with cough, Denies dyspnea, Denies dyspnea on exertion, Denies stridor and Denies wheezing Musc Denies myalgias Neuro Reports Normal hearing present and Denies headache(s) Endo Denies excessive sweating Ricardo/Lymph Denies lymphadenopathy Aller/Immun Denies itchy eyes, Denies seasonal rhinorrhea and Denies wheezing Physical Exam Vital Signs: Last Vital Signs Pulse 67 11/22/24 08:57 BP 142/64 H 11/22/24 08:57 Pulse Ox 97 11/22/24 08:57 Oxygen Delivery Method Room Air 11/22/24 08:57 BMI result Body Mass Index 33.0 Const General: cooperative, healthy appearing, comfortable, no acute distress, well developed and alert Nutritional Appearance: obese Orientation/consciousness: patient oriented x3 Limitations: no limitations HEENT Head: Yes normal to inspection, Yes normocephalic and Yes atraumatic Ears: hearing grossly normal bilaterally and external ears normal Eyes General: appearance normal, both eyes and all related structures Eyelids: Yes eyelids normal Sclerae: sclerae normal EOM: EOMs intact bilaterally Neck Neck: Yes normal visual inspection and Yes no lymphadenopathy Lymphatic: no lymphadenopathy noted Chest Chest palpation & inspection: normal inspection of the chest Resp Effort & Inspection: normal respiratory effort, able to speak in complete sentences, no audible wheezes, no cough, no stridor, not tachypneic, no tripod positioning and no use of accessory muscles Auscultation: clear to auscultation bilaterally Cardio Jugular venous distension: no JVD Rate: regular rate Rhythm: regular rhythm Skin Other: warm, dry General skin exam: no rashes or lesions noted Neuro General: patient oriented x3 Cranial nerves: Yes Normal hearing present Cognition (Neuro): normal cognition Gait exam (Neuro): Normal gait present Extrem General: Yes normal to inspection, Yes capillary refill normal, Yes no clubbing, cyanosis or edema and Yes no pedal edema Psych Appearance: grossly normal and well kempt Speech and movement: Normal speech and movement present and Clear speech present Affect: normal affect Attitude: cooperative Thought process: Normal thought process present Thought content: Normal thought content present Insight: Good insight present (Psych) Judgement: Good judgement present (Psych) Results Reviewed Results Reviewed: [address] [place] [address] CT Scan Report Signed Patient: Danielle Liang MR#: [id number] : 1955 Acct:[id number] Age/Sex: 68 / F ADM Date: 04/25/24 Loc: HO.CT Attending Dr: Rae Adames NP Ordering Physician: Rae Adames NP Date of Service: 04/25/24 Procedure(s): CT chest wo IV con Accession Number(s): [id number] cc: Sigifredo Coley MD; Rae Adames NP~ EXAMINATION: CT CHEST WITHOUT CONTRAST CLINICAL INFORMATION: Pulmonary nodules. COMPARISON: CT chest dated April 24, 2023. TECHNIQUE: Multidetector volumetric CT imaging of the chest was done. Axial MIP volume rendering provided. Sagittal and coronal reformatted images were obtained. This CT examination was performed using dose optimization techniques as appropriate, variously including the following: *Automated exposure control *Adjustment of mA and/or kV according to patient size (this includes techniques or standardized protocols for targeted exams where dose is matched to indication/reason for exam; i.e. extremities or head) *Use of iterative reconstruction technique DLP: 149 mGy-cm FINDINGS: Submitted for interpretation on June 17, 2024. Sutures, volume loss, linear attenuation in retraction involving the anterior right lower hemithorax, probably the middle lobe. There are 2 mm noncalcified pulmonary nodules in the peripheral right upper lobe, probably anterior segment. There are 2 mm noncalcified pulmonary nodules in the periphery of the left upper lobe. There is a 2 mm noncalcified pulmonary nodule in the left lower lung lobe. There are multiple, scattered less than 2 mm calcified pulmonary nodules both lungs. There is a subtle pulmonary mosaic pattern. Mild centrilobular and paraseptal emphysematous changes involving mostly the upper lobes. Linear attenuation abnormalities in the lung bases more conspicuous in the right lung. Volume loss right lung with the elevated right hemidiaphragm. No bronchiectasis. No honeycombing. No consolidation. No pleural effusion. Calcified pleural plaques, right lower hemithorax. No pneumothorax. Respiratory airways patent. Vascular clips in the jared. No gross lymphadenopathy, mediastinum or axillary. Calcified plaques in the thoracic aorta wall its main branches and the coronary arteries. No aneurysm, thoracic aorta. No pericardial effusion. There is a 1 cm low density nodule measuring 12 Hounsfield units in the right adrenal gland. Punctate calcification in the upper pole left kidney. No hydronephrosis in either kidney. Renal cortical thinning, bilaterally. Focal hypodensity in the upper pole left kidney. Multilevel spondylosis without acute fracture or listhesis. No lytic or blastic lesions. Calcified plaques abdominal aorta wall and splenic artery. CT/CT chest wo IV con IMPRESSION: New, 2 mm noncalcified pulmonary nodules in both upper lobes and left lower lung lobe. Posttreatment changes, right middle lobe/right lower lung lobe and calcified pleura plaque. 1 cm nodule, right adrenal gland. Perhaps a lipid poor adenoma Coronary artery disease and atherosclerosis disease. Probable nonobstructing nephrolithiasis, left kidney.. Fleischner guidelines were followed. 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: Assessment & Plan Assessment & Plan (1) Dyspnea on exertion: Code(s): R06.09 - Other forms of dyspnea Category: Medical (2) Multiple pulmonary nodules: Code(s): R91.8 - Other nonspecific abnormal finding of lung field Category: Medical (3) Emphysema of lung: Code(s): J43.9 - Emphysema, unspecified Category: Medical (4) History of lung cancer: Comment: (Hx SCC s/p RML wedge resection in 2013) Code(s): Z85.118 - Personal history of other malignant neoplasm of bronchus and lung Category: Medical (5) Pleural plaque: Code(s): J92.9 - Pleural plaque without asbestos Category: Medical Plan Advised patient to continue current regimen of Breo and albuterol PRN. Will send refills. She is being followed for pulmonary nodules 3 mm nodule in the right upper lobe, h/o lung cancer. Chest CT 04/28 revealed new 2 mm pulmonary nodules of KIESHA, will send for repeat chest CT 04/2025 to assess stability. Patient reports personal history and strong family history of lung cancer questioning possible genetic testing. Will enter referral to [facility] genetics. All questions were answered and patient is in agreement of plan. Will follow up to review results or sooner if needed. Orders: Referrals Genetics Referral Z80.1 - Family history of malignant neoplasm of trachea, bronchus and lung, Z85.118 - Personal history of other malignant neoplasm of bronchus and lung Medications: Refilled fluticasone furoate-vilanterol 200-25 mcg/dose (Breo Ellipta) 1 inh inhalation DAILY 90 days 60 ea 3RF J43.9 - Emphysema, unspecified albuterol sulfate 90 mcg/actuation 2 puffs inhalation Q4-6H PRN 1 ea 0RF shortness of breath or wheezing Coding Level of Care Code Est Pt Level 4 (46587) Diagnoses Dyspnea on exertion R06.09 Multiple pulmonary nodules R91.8 Emphysema of lung J43.9 History of lung cancer Z85.118 Pleural plaque J92.9
--- OUTSIDE RECORDS SUMMARY | 2024-11-22 09:12 | XMS_ITS | Clinical Summary ---
Author Organization [facility] Address [address] [place] [address] Care Team Providers Care State Pilot Name Role Phone Sigifredo Coley MD Primary Care Provider [phone]- [phone] Allergies Active Allergy Reactions Criticality Noted Date Comments Codeine GI Intolerance Low 09/05/2023 Sulfa (Sulfonamide Antibiotics) Anaphylaxis High 08/2023 Medications Humphil,CF, Pen 40 mg/0.4 mL kit 4 Active albuterol (VENTOLIN HFA) 90 mcg/actuation inhaler INHALE 2 PUFFS EVERY 4 TO 6 HOURS NEEDED FOR SHORTNESS OF BREATH OR FOR WHEEZE 4 Active alendronate (FOSAMAX) 70 MG tablet 1 TABLET BY MOUTH IN THE AM W/ 6-8 OZ PLAIN WATER,30 MIN BEFORE FIRST FOOD, BEVERAGE, MED OF THE DAY 4 Active calcium carbonate-vitam in D3 600 mg-20 mcg (800 unit) tab TAKE 1 TABLET BY MOUTH TWICE A DAY 4 Active clopidogreL (PLAVIX) 75 mg tablet TAKE 1 TABLET BY MOUTH EVERY DAY 3 Active Breo Ellipta 200-25 mcg/dose dsdv INHALE 1 PUFF BY MOUTH EVERY DAY 4 Active losartan (COZAAR) 25 MG tablet TAKE 1 TABLET BY MOUTH EVERY DAY 3 Active gabapentin (NEURONTIN) 600 MG tablet TAKE 1 TABLET BY MOUTH TWICE A DAY 3 Active pravastatin (PRAVACHOL) 40 MG tablet TAKE 1 TABLET BY MOUTH DAILY 3 Active acetaminophen 325 mg cap Take 325 mg by mouth Every 4-6 hours as needed (pain) 4 Active Immunizations Name Administration Dates Next Due Flublok Trivalent Prefilled Syringe (18+ years) 04/13/2019 Social History Tobacco Use Types Packs/Day Years Used Date Smoking Tobacco: Former Cigarettes Smokeless Tobacco: Never Tobacco Cessation:Counseling Given: Yes Alcohol Use Standard Drinks/Week Comments Not Currently 0 (1 standard drink = 0.6 oz pur e alcohol) PHQ-2 Answer Date Recorded PHQ-2 Score Yes, PHQ2 09/05/2023 Comments No Sex and Gender Information Value Date Recorded Sex Assigned at Not on file Legal Sex Female 8:54 AM EDT Gender Identity Not on file Sexual Orientation Not on file Last Filed Vital Signs Vital Sign Reading Time Taken Comments Blood Pressure 150/78 09/05/2023 3:55 PM EST Pulse 68 09/05/2023 3:42 PM EST Temperature 36.6 ??C (97.8 ??F) 09/05/2023 3:42 PM ES T Respiratory Rate 18 09/05/2023 3:42 PM EST Oxygen Saturation 99% 09/05/2023 3:42 PM EST Inhaled Oxygen Concentration - - Weight 77.1 kg (170 lb) 09/05/2023 3:42 PM EST Height 157.5 cm (5' 2 ) 09/05/2023 3:42 PM EST Body Mass Index 31.09 09/05/2023 3:42 PM EST Plan of Treatment Health Maintenance Due Date Last Done Comments Colorectal Cancer: COLONOSCO PY Screening every 10 yrs (or Modifier) 1955 Depression: Screening Annual ly using PHQ-2/9 in Adults 18 yrs or above (or HM Modifier)([facility]) 1973 Hepatitis C Virus Infection in Adolescents and Adults: Screening (or Modifier) ([facility]) 1973 NICK Screening: Once using ST OP-BANG Questionnaire for Adults with Conditions or high BMI([facility]) 1973 SDOH Screening Reminder: Julieta lo for all adults ([facility]) 1973 DTaP/Tdap/Td Vaccines ([facility]) (1 - Tdap) 1974 Colorectal Cancer Screening 45 -75 Yrs (or HM Modifier) 2000 Colorectal Cancer: FLEXIBLE SIGMOIDOSCOPY Screening every 5 yrs 2000 Colorectal Cancer: Fecal Imm unochemical Test (FIT) Annually [facility] 2000 Colorectal Cancer: High-sens itivity gFOBT Screening Annually [facility] 2000 Colorectal Cancer: Stool Col oguard Screening every 3 yrs 2000 Colorectal Cancer:CT Colonog aubrie Screening every 5 yrs 2000 Lipid Screening: Every 5 yrs for Women aged 45+ (or HM Modifier) ([facility]) 2001 Breast Cancer: Screening Julieta ually age 50-74 yrs (or HM Modifier)([facility]) 2005 Lung Cancer: Screening Annua lly in adults aged 50 to 80 years (or HM Modifiers)([facility]) 2005 Pneumococcal Vaccination Scr eening: Patients 50+ yrs of age ([facility]) (1 of 1 - PCV) 2005 Zoster/Shingles Vaccine Seri es Screening: Adults aged 18+ yrs (or HM Modifiers)([facility]) (1 of 2) 2005 Osteoporosis Screening to Pr event Fractures: Women aged 65 years+ ([facility]) 2020 COVID-19 Vaccine Screening: Initial Series and Booster Status ([facility]) (2023- season) 2024 Tobacco Smoking Cessation: i n Adults excluding Women: Behavioral and Pharmacotherapy Interventions ([facility]) 09/04/2024 09/05/2023 Flu Vaccination: Ages 65+: Y early High Dose Recommended (or Modifier)([facility]) 02/03/2025 04/13/2019 RSV Vaccines (1 - 1-dose 75+ series) 2030 Medical Devices Not on file Insurance [facility] Care Teams State Pilot Relationship Specialty Start Date End Date Sigifredo Coley MD [address] [place] [phone] PCP - Trade Sales Assistant 04/13/19
== END 2024-11-22 09:26 | disposition home or self-care (01) ==
LOC: HO.HPSW 08:51
PROVIDERS: PCP Internal Medicine; Visit Provider Nurse Practitioner Family
DX: R06.09 Other forms of dyspnea (principal); R91.8 Other nonspecific abnormal finding of lung field; J43.9 Emphysema, unspecified; Z85.118 Personal history of other malignant neoplasm of bronchus and lung; J92.9 Pleural plaque without asbestos
CPT/HCPCS: 99214

== ENCOUNTER → 2024-11-22 08:50 | Outpatient (BNVA) | payer OTHER, SELFPAY | PROVIDERS: PCP Internal Medicine; Visit Provider Nurse Practitioner Family ==

== ENCOUNTER 2025-05-05 12:28 | Outpatient (REF) | payer OTHER, SELFPAY ==
--- NOTE | ~2025-05-05 | CT_ITS ---
EXAMINATION: CT CHEST WITHOUT IV CONTRAST INDICATION: R91.8 - Other nonspecific abnormal finding of lung field COMPARISON: Comparison is made with the prior examination dated 04/25/2024. TECHNIQUE: Helical CT scan of the chest was performed without intravenous contrast. Coronal and sagittal reformatted images were generated and reviewed. This CT exam was performed with one or more of the following dose reduction techniques: automated exposure control, adjustment of the mA and/or kV according to patient size, use of iterative reconstruction technique. DLP: 171 mGy-cm CHEST: THYROID: The thyroid is unremarkable. LUNGS: There are mild emphysematous changes. Postsurgical changes are noted involving the right middle lobe. Scarring in the right lower lobe. Again seen is an 8 mm groundglass nodule at the right lung apex (series 5, image 24). Punctate nodules are noted in the right middle lobe (series 4, image 72), in the right lower lobe (series 5, image 78), in the left upper lobe (series 5, image 23), and in the left lower lobe (series 5, image 98). MEDIASTINUM: There is no mediastinal lymphadenopathy. TRENT: Evaluation of the hilar regions is limited by lack of intravenous contrast material. CARDIOVASCULATURE: The heart is normal in size. There is no pericardial effusion. The thoracic aorta is normal in caliber. DEGREE OF CORONARY CALCIFICATION: mild PLEURA: There are pleural plaques at the right lung base. There is no pleural effusion. No pneumothorax. MAIN AIRWAYS: The mainstem bronchi and proximal branches are patent. AXILLA: There is no axillary lymphadenopathy. BONES AND SOFT TISSUES: Unremarkable UPPER ABDOMEN: The visualized portions of the liver, spleen, and left adrenal gland have an unremarkable unenhanced appearance. Again seen is a 1.2 cm right adrenal nodule. CT/CT chest wo IV con IMPRESSION: 1. Mild emphysema. Stable subcentimeter pulmonary nodules as described above. 2. 1.2 cm right adrenal nodule without change. Electronically signed by: Angelo Benitez MD 05/05/2025 01:09 PM EDT
--- OUTSIDE RECORDS SUMMARY | 2025-05-05 13:45 | XMS_ITS | Clinical Summary ---
Author Organization [facility] [facility] Address [address] [place] [address] Care Team Providers Care Movers Name Role Phone Sigifredo Coley MD Primary Care Provider [phone]- [phone] Allergies Active Allergy Reactions Criticality Noted Date [...] hours as needed (pain) 4 Active Immunizations Immunization Administration Dates Next Due Flublok Trivalent Prefilled [...] 68 09/05/2023 3:42 PM EST Temperature 36.6 C (97.8 F) 09/05/2023 3:42 PM EST Respiratory Rate 18 09/05/2023 3:42 PM EST Oxygen Saturation 99% 09/05/2023 3:42 PM EST Inhaled Oxygen Concentration - - Weight 77.1 kg (170 lb) 09/05/2023 3:42 PM EST Height 157.5 cm (5' 2 ) 09/05/2023 3:42 PM EST Body Mass Index 31.09 09/05/2023 3:42 PM EST Plan of Treatment Not on file Medical Devices Not on file Insurance Care Teams Movers Relationship Specialty Start Date End Date Sigifredo Coley MD PCP - Box Toe [employer] 04/13/19
== END 2025-05-05 12:29 | disposition home or self-care (01) ==
LOC: HO.CT 12:28
PROVIDERS: PCP Internal Medicine; Visit Provider Nurse Practitioner Family
DX: R91.8 Other nonspecific abnormal finding of lung field (principal)
CPT/HCPCS: 71250

== ENCOUNTER → 2025-05-05 12:30 | Outpatient (BNV) | payer OTHER, SELFPAY | PROVIDERS: PCP Internal Medicine; Visit Provider Radiology Diagnostic Radiology | DX: R91.8 Other nonspecific abnormal finding of lung field (principal) | CPT/HCPCS: 71250 ==

== ENCOUNTER 2025-05-24 09:30 | Outpatient (AMB) | payer OTHER, SELFPAY ==
[2025-05-24 09:37] VITALS: BP 128/60; PULSE 68; O2SAT 97; BMI 32.4
--- NOTE | 2025-05-24 09:37 | MHC.OFFVIS ---
Vital Signs 05/24/25 09:37 Height 5 ft 2.5 in Weight 180 lb 4 oz BMI 32.4 BP 128/60 Blood Pressure Location Lt brachial Position Sitting Pulse 68 Pulse Source Pulse Oximeter Pulse Oximetry (%) 97 Oxygen Delivery Method Room Air Intake Visit Reasons: dyspnea Allergies Sulfa (Sulfonamide Antibiotics) Allergy (Verified 05/24/25 09:46) unknown codeine Adverse Reaction (Verified 05/24/25 09:46) vomiting bactrim Allergy (Mild, Uncoded 05/24/25 09:46) Rash HPI HPI dyspnea: Details: Danielle is a pleasant 70 year old female, former 30 pack year smoker, quit 18 years ago with emphysema and underlying h/o of squamous cell carcinoma s/p right middle lobe wedge resection (no chemo/radiation), cervical cancer in her 20s s/p partial hysterectomy, psoriatic arthritis on Skyrizi, previously on Humira and followed by [facility] rheumatology. She continues to report good control of respiratory symptoms on Breo, reporting occasional dyspnea, using albuterol MDI infrequently. Since the last visit, she was treated for pneumonia in addition to Influenza in January and feels symptoms are back baseline. Today she presents to review chest CT results. [facility] Medical History (Updated 11/22/24 @ 13:34 by Rae Adames NP) History of lung cancer Multiple pulmonary nodules PVD (peripheral vascular disease) Psoriatic arthritis Hypertension Hyperlipidemia Hypothyroidism History of cervical cancer Surgical History (Updated 05/14/23 @ 10:27 by Lynne Tian PA-C) History of lung surgery History of cardiac cath History of angioplasty History of hysterectomy History of hernia repair History of tonsillectomy History of appendectomy Social History Patient Tobacco Use Status: Former Tobacco user Cigarette Packs Per Day: 1 Years Smoked: 30 Review of Systems Const Denies chills, Denies excessive sweating, Denies fever(s), Denies headache(s) and Denies night sweats Eyes Denies dry eyes, Denies irritation and Denies itchy eyes ENT Reports Normal hearing present, Denies headache(s), Denies nasal congestion, Denies nasal discharge, Denies post nasal drip and Denies sore throat Card Denies chest pain, Denies chest pain at rest, Denies chest pain with activity, Denies claudication, Denies leg edema, Denies orthopnea and Denies paroxysmal nocturnal dyspnea Resp Denies chest congestion, Denies cough, Denies excessive phlegm production, Denies pain on inspiration, Denies pain with cough, Denies stridor and Denies wheezing Musc Denies myalgias Neuro Reports Normal hearing present and Denies headache(s) Endo Denies excessive sweating Ricardo/Lymph Denies lymphadenopathy Aller/Immun Denies itchy eyes, Denies seasonal rhinorrhea and Denies wheezing Physical Exam Vital Signs: Last Vital Signs Pulse 68 05/24/25 09:37 BP 128/60 05/24/25 09:37 Pulse Ox 97 05/24/25 09:37 Oxygen Delivery Method Room Air 05/24/25 09:37 BMI result Body Mass Index 32.4 Const General: cooperative, healthy appearing, comfortable, no acute distress, well developed and alert Nutritional Appearance: obese Orientation/consciousness: patient oriented x3 Limitations: no limitations HEENT Head: Yes normal to inspection, Yes normocephalic and Yes atraumatic Ears: hearing grossly normal bilaterally and external ears normal Eyes General: appearance normal, both eyes and all related structures Eyelids: Yes eyelids normal Sclerae: sclerae normal EOM: EOMs intact bilaterally Neck Neck: Yes normal visual inspection and Yes no lymphadenopathy Lymphatic: no lymphadenopathy noted Chest Chest palpation & inspection: normal inspection of the chest Resp Effort & Inspection: normal respiratory effort, able to speak in complete sentences, no audible wheezes, no cough, no stridor, not tachypneic, no tripod positioning and no use of accessory muscles Auscultation: clear to auscultation bilaterally Cardio Jugular venous distension: no JVD Rate: regular rate Rhythm: regular rhythm Skin Other: warm, dry General skin exam: no rashes or lesions noted Neuro General: patient oriented x3 Cranial nerves: Yes Normal hearing present Cognition (Neuro): normal cognition Gait exam (Neuro): Normal gait present Extrem General: Yes normal to inspection, Yes capillary refill normal, Yes no clubbing, cyanosis or edema and Yes no pedal edema Psych Appearance: grossly normal and well kempt Speech and movement: Normal speech and movement present and Clear speech present Affect: normal affect Attitude: cooperative Thought process: Normal thought process present Thought content: Normal thought content present Insight: Good insight present (Psych) Judgement: Good judgement present (Psych) Results Reviewed Results Reviewed: [address] [address] [address] Scan Report Signed Patient: Danielle Liang MR#: [id number] : 1955 Acct:[id number] Age/Sex: 69 / F ADM Date: 05/05/25 Loc: HO.CT Attending Dr: Rae Adames NP Ordering Physician: Rae Adames NP Date of Service: 05/05/25 Procedure(s): CT chest wo IV con Accession Number(s): [id number] cc: Sigifredo Coley MD; Rae Adames NP~ Report Number: [id number]: Total DLP = 171.00 mGy-cm Reason for Exam: R91.8 - Other nonspecific abnormal finding of lung field EXAMINATION: CT CHEST WITHOUT IV CONTRAST INDICATION: R91.8 - Other nonspecific abnormal finding of lung field COMPARISON: Comparison is made with the prior examination dated 04/25/2024. TECHNIQUE: Helical CT scan of the chest was performed without intravenous contrast. Coronal and sagittal reformatted images were generated and reviewed. This CT exam was performed with one or more of the following dose reduction techniques: automated exposure control, adjustment of the mA and/or kV according to patient size, use of iterative reconstruction technique. DLP: 171 mGy-cm CHEST: THYROID: The thyroid is unremarkable. LUNGS: There are mild emphysematous changes. Postsurgical changes are noted involving the right middle lobe. Scarring in the right lower lobe. Again seen is an 8 mm groundglass nodule at the right lung apex (series 5, image 24). Punctate nodules are noted in the right middle lobe (series 4, image 72), in the right lower lobe (series 5, image 78), in the left upper lobe (series 5, image 23), and in the left lower lobe (series 5, image 98). MEDIASTINUM: There is no mediastinal lymphadenopathy. TRENT: Evaluation of the hilar regions is limited by lack of intravenous contrast material. CARDIOVASCULATURE: The heart is normal in size. There is no pericardial effusion. The thoracic aorta is normal in caliber. DEGREE OF CORONARY CALCIFICATION: mild PLEURA: There are pleural plaques at the right lung base. There is no pleural effusion. No pneumothorax. MAIN AIRWAYS: The mainstem bronchi and proximal branches are patent. AXILLA: There is no axillary lymphadenopathy. BONES AND SOFT TISSUES: Unremarkable UPPER ABDOMEN: The visualized portions of the liver, spleen, and left adrenal gland have an unremarkable unenhanced appearance. Again seen is a 1.[address] cm right adrenal nodule. CT/CT chest wo IV con IMPRESSION: 1. Mild emphysema. Stable subcentimeter pulmonary nodules as described above. 2. 1.2 cm right adrenal nodule without change. 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: Assessment & Plan Assessment & Plan (1) Dyspnea on exertion: Code(s): R06.09 - Other forms of dyspnea Category: Medical (2) Multiple pulmonary nodules: Code(s): R91.8 - Other nonspecific abnormal finding of lung field Category: Medical (3) Emphysema of lung: Code(s): J43.9 - Emphysema, unspecified Category: Medical (4) History of lung cancer: Comment: (Hx SCC s/p RML wedge resection in 2013) Code(s): Z85.118 - Personal history of other malignant neoplasm of bronchus and lung Category: Medical (5) Pleural plaque: Code(s): J92.9 - Pleural plaque without asbestos Category: Medical Plan Patient reports good control of respiratory symptoms on current regimen, advised to continue Breo and albuterol PRN. She is aware to call if symptoms change. Prior chest CT 04/28 revealed new 2 mm pulmonary nodules of KIESHA and repeat CT 05/05 report states stability of pulmonary nodules, however after reviewing imaging it appears right apex ggo nodule appears more dense therefore will repeat imaging in 6 months given prior h/o lung cancer, possibly related to pneumonia in January. Incidental finding of right 1.2 cm adrenal nodule which has been present and stable since 2020, message sentt to PCP. All questions were answered and patient is in agreement of plan. Will follow up to review results or sooner if needed. Orders: Orders CT chest wo IV con 5 Months R91.8 - Other nonspecific abnormal finding of lung field, Z85.118 - Personal history of other malignant neoplasm of bronchus and lung Medications: Refilled fluticasone furoate-vilanterol 200-25 mcg/dose (Breo Ellipta) 1 inh inhalation DAILY 180 ea 1RF 90 days J43.9 - Emphysema, unspecified albuterol sulfate 90 mcg/actuation 2 puffs inhalation Q4-6H PRN 6.7 ea 0RF for wheezing Coding Level of Care Code Est Pt Level 4 (55771) Diagnoses Dyspnea on exertion R06.09 Multiple pulmonary nodules R91.8 Emphysema of lung J43.9 History of lung cancer Z85.118 Pleural plaque J92.9
--- OUTSIDE RECORDS SUMMARY | 2025-05-24 17:33 | XMS_ITS | Clinical Summary ---
Author Organization [facility] Address [address] [place] [address] Care Team Providers Care Binder Cutter Name Role Phone Sigifredo Coley MD Primary Care Provider [phone] Allergies Active Allergy Reactions Criticality Noted Date [...] Adults 18 yrs or above (or HM Modifier)([facility]) 1973 Hepatitis C Virus Infection in Adolescents and Adults: Screening (or Modifier) ([facility]) 1973 NICK Screening: Once using ST OP-BANG Questionnaire for Adults with Conditions or high BMI([facility]) 1973 SDOH Screening Reminder: Julieta teresita for all adults ([facility]) 1973 DTaP/Tdap/Td Vaccines ([facility]) (1 - Tdap) 1974 Colorectal Cancer Screening 45 -75 Yrs (or HM Modifier) 2000 Colorectal Cancer: FLEXIBLE SIGMOIDOSCOPY Screening every 5 yrs 2000 Colorectal Cancer: Fecal Imm unochemical Test (FIT) Annually [facility] 2000 Colorectal Cancer: High-sens itivity gFOBT Screening Annually [facility] 2000 Colorectal Cancer: Stool Col oguard Screening every 3 yrs 2000 Colorectal Cancer:CT Colonog aubrie Screening every 5 yrs 2000 Breast Cancer: Screening Julieta ually age 50-74 yrs (or HM Modifier)([facility]) 2005 Lung Cancer: Screening Annua lly in adults aged 50 to 80 years (or HM Modifiers)([facility]) 2005 Pneumococcal Vaccination Scr eening: Patients 50+ yrs of age ([facility]) (1 of 1 - PCV) 2005 Zoster/Shingles Vaccine Seri es Screening: Adults aged 18+ yrs (or HM Modifiers)([facility]) (1 of 2) 2005 Osteoporosis Screening to Pr event Fractures: Women aged 65 years+ ([facility]) 2020 Tobacco Smoking Cessation: i n Adults excluding Women: Behavioral and Pharmacotherapy Interventions ([facility]) 09/04/2024 09/05/2023 Flu Vaccination: Ages 65+: Y early High Dose Recommended (or Modifier)([facility]) 02/03/2025 04/13/2019 COVID-19 Vaccine Screening: Initial Series and Booster Status ([facility]) ( - 2024- season) 2025 RSV Vaccines (1 - 1-dose 75+ series) 2030 Medical Devices Not on file Insurance Care Teams Binder Cutter Relationship Specialty Start Date End Date Sigifredo Coley MD PCP - Tobacco Grower 04/13/19
== END 2025-05-24 10:20 | disposition home or self-care (01) ==
LOC: HO.HPSW 09:31
PROVIDERS: PCP Internal Medicine; Visit Provider Nurse Practitioner Family
DX: R06.09 Other forms of dyspnea (principal); R91.8 Other nonspecific abnormal finding of lung field; J43.9 Emphysema, unspecified; Z85.118 Personal history of other malignant neoplasm of bronchus and lung; J92.9 Pleural plaque without asbestos
CPT/HCPCS: 99214